=== PATIENT | female | born 1950 | race Caucasian/White ===

== ENCOUNTER 2024-10-23 13:35 | Emergency (ER) | payer OTHER, SELFPAY ==
[2024-10-23] VITALS (9 sets, daily range): BP systolic 94–133; BP diastolic 61–83; PULSE 89–119; RESP 16–20; TEMP 36.4–36.7; O2SAT 94–98; BMI 30.6
--- NOTE | ~2024-10-23 | XR_ITS ---
CLINICAL HISTORY: R Chest pain ribs 1 view chest x-ray Comparison: None Findings: The lungs are clear. Normal size heart. No acute fracture. IMPRESSION: 1. No acute findings. This document has been electronically signed by: Karine Vail MD on 10/23/2024 17:18:59
--- NOTE | 2024-10-23 16:14 | ECG_ITS ---
Test Reason : HYPOTENSIVE Blood Pressure : */* mmHG Vent. Rate : 92 BPM Atrial Rate : 92 BPM P-R Int : 136 ms QRS Dur : 70 ms QT Int : 350 ms P-R-T Axes : 39 -35 115 degrees QTcB Int : 432 ms Normal sinus rhythm Left axis deviation Nonspecific T wave abnormality Abnormal ECG No previous ECGs available Referred By: Yolande Wisdom Electronically Signed By: JASMIN KING
--- NOTE | 2024-10-23 16:17 | ED.GENADULT ---
HPI - General Adult General Chief complaint: General Medical Stated complaint: hypotension 70/46 Time Seen by Provider: 10/23/24 16:05 Source: patient and EMS Mode of arrival: EMS Limitations: no limitations History of Present Illness ED Provider: Dr. Yolande Wisdom HPI narrative: Patient comes to the emergency room from her primary care physician's office. According to the patient, she was there for a routine exam. Patient states that she has not been feeling quite well for a few days, a bit of runny nose. No syncopal episodes, no shortness of breath or chest pain. When they checked her vitals, they noted that her orthostatics were positive, 90/62 supine and then 70/46 sitting. They called an ambulance and brought the patient to emergency room. At this time, patient has no complaints. Patient reports that this morning she took amlodipine and valsartan. Patient states that recently she was asked to increase her dose by taking an additional tablet, patient believes that she might have taking a bit more than instructed because she got confused. Patient denies syncope or near syncopal episodes Related Data Allergies Allergy/AdvReac Type Severity Reaction Status Date / Time No Known Allergies Allergy Verified 10/23/24 13:59 Review of Systems Review of Systems: Constitutional : No Weight loss, No Fever, No Chills, No Night Sweats, No Fatigue, No Malaise ENT/Mouth : No Hearing loss, No Ear Pain, No Nasal Congestion, No Sinus Pain, No Hoarseness, No sore throat, No Rhinorrhea, No Swallowing Difficulty Eyes: No Eye Pain, No Swelling, No Redness, No Foreign Body, No Discharge, No Vision Changes Cardiovascular : No Chest Pain, No SOB, No Dyspnea on Exertion, No Orthopnea, No Edema, No Palpitations, patient reports positive orthostatic hypotension vitals earlier today Respiratory : No Cough, No Sputum, No Wheezing, No Smoke Exposure, No Dyspnea Gastrointestinal : No Nausea, No Vomiting, No Diarrhea, No Constipation, No abdominal Pain, No Hematochezia, No Melena Genitourinary : no irregular bleeding, No Dysuria, No Urinary Frequency, No Hematuria, No Urinary Incontinence, No Urgency, No Flank Pain, No Urinary Flow Changes, No Hesitancy Musculoskeletal : No joint pain, No Myalgias, No Joint Swelling Skin : No Skin Lesions, No rash Neuro : No Weakness, No Numbness, No Paresthesias, No Loss of Consciousness, No Dizziness, No Headache Psych : No Anxiety/Panic, No Depression, No SI/HI/AH/VH, No Social Issues, Heme/Lymph: No Bruising, No Bleeding,No Lymphadenopathy Endocrine : No Polyuria, No Polydipsia, No Temperature Intolerance [facility] Past Medical History Medical History (Updated 10/23/24 @ 19:57 by Yolande Wisdom MD) Diabetes Hypertension Social History Social History Smoked in Last 30 Days: No Use of substances other than those prescribed or required for medical reasons: No Advance Directives: No Advance Directives Information Provided: No Physical Exam ED Vital Signs: Vital Signs - 24 hr 10/23/24 13:52 10/23/24 14:23 10/23/24 15:12 Temperature 97.5 F Pulse Rate 103 H 94 90 Respiratory Rate 18 16 Blood Pressure 94/64 104/61 113/65 Pulse Oximetry 98 95 Oxygen Delivery Method Room Air Room Air 10/23/24 15:14 10/23/24 15:16 10/23/24 16:36 Temperature Pulse Rate 109 H 119 H 90 Respiratory Rate Blood Pressure 116/73 105/66 95/65 Pulse Oximetry Oxygen Delivery Method 10/23/24 16:36 10/23/24 16:37 10/23/24 19:04 Temperature 98.1 F Pulse Rate 103 H 119 H 89 Respiratory Rate 20 Blood Pressure 106/73 103/62 133/83 Pulse Oximetry 94 Oxygen Delivery Method Room Air 10/23/24 22:44 Temperature 97.8 F Pulse Rate 95 Respiratory Rate 18 Blood Pressure 100/65 Pulse Oximetry 94 Oxygen Delivery Method Room Air BMI result Body Mass Index 30.6 Const Other: Appearance: Alert. Oriented X3. No acute distress. Eyes: Pupils equal, round and reactive to light. ENT: Pharynx normal. Neck: Normal inspection. Neck supple. No lymph nodes noted. No crepitus CVS: Normal heart rate and rhythm. Pulses normal. Normal S1 and S2 Respiratory: No respiratory distress. Breath sounds normal. No Wheezing. No rales Abdomen: Soft and nontender. No rigidity. No distention. Skin: Skin warm and dry. Normal skin color. Normal skin turgor. Extremities: No lower extremity edema. No Lacerations. No Rash Neuro: Oriented X 3. No motor deficit. No sensory deficit. Moving all extremities. No slurred speech. CN 2 through 12 grossly intact Psych: calm, cooperative, normal affect Course Course Course Narrative: This time, patient is asymptomatic All of patient's labs pending, orthostatic vitals pending Medications Administered Discontinued Medications Generic Name Dose Route Start Last Admin Trade Name Raymon PRN Reason Stop Dose Admin Sodium Chloride 1,000 mls @ 999 mls/hr 10/23/24 16:14 10/23/24 17:56 Ns IVCONT 10/23/24 17:14 Infused .Q1H1M ONE Infusion Medical Decision Making Medical Decision Making [facility] Narrative: My interpretation of labs: Patient's white blood cell count 12.7, likely reactive leukocytosis. No significant abnormality in patient's chemistry, troponin negative, serology negative for influenza RSV and COVID Chest x-ray does not show any acute abnormality My interpretation of EKG: Normal sinus rhythm, heart rate 92, no ST segment depression or elevation, no T-wave inversion, QTC 432 Orthostatic vitals negative Patient feels well after IV fluids. Patient admits that she may have taken extra doses of her morning blood pressure medications. Patient states that she was able to walk to the bathroom, is asymptomatic, denies chest pain shortness of breath or dizziness. A urinalysis was requested. However, patient forgot and went to the bathroom. Did not provide a urine sample Patient feels well to go home. After the patient was all set to be discharged. I was informed by the patient's nurse that the patient was complaining that nobody was addressing her problems. Patient was feeling dizzy again. Patient was given another L of fluids. Although, a few minutes before, she patient got up to the bathroom and stated that she was feeling completely normal. Throughout the entire time that the patient was here in the emergency room, patient was calm, cooperative, normal mood affect, stating that she was feeling well, asymptomatic and felt ready to go home. However, after she was informed that she was getting discharged, the patient made phone calls to her son asking him to pick her up. Seems that her son refused to pick her up. Patient very upset, no longer wants to go, stating that she does not feel well again. started arguing with her nurse. Patient keeps trying to get in touch with family members to pick her up but so far she has had no luck Differential Diagnosis Differential Diagnoses: The differential diagnosis associated with the presentation includes (Orthostatic hypotension, dehydration, accidental medication overdose) Admission/Observation Consideration of admission/observation: Escalation of care including admission/observation considered (Given patient's symptoms and presentation, observation was considered) Lab Data MDM Lab Attestation statement: I reviewed the patient's lab results. 10/23/24 17:14 10/23/24 17:14 Labs: Lab Results 10/23/24 10/23/24 Range/Units 17:14 20:13 WBC 12.7 H (4.8-10.8) X10*3/uL RBC 4.83 (4.20-5.50) X10*6/uL Hgb 14.5 (12.0-16.0) g/dl Hct 43.9 (37.0-47.0) % MCV 90.9 (80.0-98.0) fL MCH 30.0 (27.0-33.0) pg MCHC 33.0 (31.0-35.0) g/dl RDW 13.9 (11.0-16.0) % Plt Count 427 H (160-400) X10*3/uL MPV 9.0 L (9.4-12.3) fL Immature Gran % (Auto) 0.4 (0.0-0.4) % Neut % (Auto) 65.0 (45-73) % Lymph % (Auto) 26.6 (20-40) % Cameron % (Auto) 6.3 (2-11) % Eos % (Auto) 1.3 (0-4) % Baso % (Auto) 0.4 (0-2) % Lymph # (Auto) 3.4 (1.2-4.9) X10*3/uL Cameron # (Auto) 0.8 (0.1-1.2) X10*3/uL Eos # (Auto) 0.2 (0.0-0.4) X10*3/uL Baso # (Auto) 0.1 (0.0-0.2) X10*3/uL Abs Immat Gran (auto) 0.05 H (0.00-0.03) X10*3/uL Absolute Neuts (auto) 8.2 (2.0-8.3) x10*3/uL Absolute Nucleated RBC 0.000 (0.0-0.012) X10*3/uL Nucleated RBC % (auto) 0.0 (0.0-0.2) /100WBC Sodium 141 (135-145) mmol/L Potassium 4.6 (3.3-5.1) mmol/L Chloride 109 H (96-108) mmol/L Carbon Dioxide 27 (22-29) mmol/L Anion Gap 10 L (12-20) BUN 18 H (9-16) mg/dL Creatinine 1.40 (0.5-1.4) mg/dL Estim Creat Clear Calc 32.7 Estimated GFR 37 Random Glucose 89 (60-115) mg/dL Calcium 8.6 (8.4-10.2) mg/dL Magnesium 1.8 (1.6-2.6) mg/dL Total Bilirubin 0.4 (0.0-1.0) mg/dL Direct Bilirubin 0.1 (0.0-0.5) mg/dL AST 14 (5-31) U/L ALT 8 (0-31) U/L Alkaline Phosphatase 73 (39-117) U/L Troponin I High Sens 7.3 (<3.5-17.0) ng/L Total Protein 6.1 L (6.5-8.0) g/dL Albumin 3.3 L (3.5-5.0) g/dL Urine Color Yellow Urine Appearance Cloudy Urine pH 5.0 (5.0-9.0) Ur Specific Mohler 1.020 (1.005-1.025) Urine Protein Trace (Neg-Trace) mg/dL Urine Glucose (UA) Negative (Negative) mg/dL Urine Ketones Negative (Negative) mg/dL Urine Blood Negative (Negative) Urine Nitrite Negative (Negative) Ur Leukocyte Esterase Trace H (Negative) Urine RBC 0-2 (0-2) /HPF Urine WBC 0-5 (0-5) /HPF Ur Squamous Epith Cells 11-20 (0-2) /HPF Urine Bacteria 1+ (None Seen) Hyaline Casts 3-5 (0-2) /LPF Influenza Type A (PCR) NEGATIVE (Negative) Influenza Type B (PCR) NEGATIVE (Negative) RSV RNA Qual (PCR) NEGATIVE (Negative) SARS-CoV-2 RNA (RT-PCR) NEGATIVE (Negative) Independent Interpretation I performed an independent interpretation of an: EKG and Plain X-Ray Radiology Impression Discussion of test interpretation with radiology: I have reviewed the radiologist's reading. Radiologist Impression: The lungs are clear. Normal size heart. No acute fracture. IMPRESSION: 1. No acute findings. Critical Care Time Critical Care Time Critical Care Time: Yes Total Critical Care Time: 35 Attestation: I have personally provided critical care time. Time includes review of lab data, radiology results, discussion with consultants, and monitoring for potential decompensation. Intervention performed as documented. Discharge Plan Discharge Clinical Impression: Orthostatic hypotension Patient Disposition: Home, Self-Care Instructions: Hypotension (ED) Additional Instructions: Please follow-up with your primary care physician tomorrow. If you have any worsening or new symptoms, please return to the emergency room or call 911 Print Language: Kyrgyz
--- OUTSIDE RECORDS SUMMARY | 2024-10-23 16:29 | XMS_ITS | Clinical Summary ---
Author Organization [facility] Address [address] [facility] [address] [place] [address] Phone Care Team Providers Care Polytechnic Registrar Name Role Phone Edy Gordon MD Primary Care Provider [phone] Allergies Active Allergy Reactions Criticality Noted Date Comments Bupropion 03/19/2024 Other Reaction(s): we are thoughts Citalopram 03/19/2024 Other Reaction(s): sexual dysfunction Niacin 03/19/2024 Other Reaction(s): burning Rosiglitazone 03/19/2024 Other Reaction(s): swelling Medications amLODIPine (NORVASC) 5 MG tablet Take 5 mg by mouth in the morning. 2018 Active aspirin (ST SANAM) 81 MG EC tablet Take 81 mg by mouth 05/24/2017 Active atorvastatin (LIPITOR) 80 MG tablet Take 80 mg by mouth 01/15/2022 Active fenofibrate (TRICOR) 145 MG tablet Take 145 mg by mouth in the morning. Active gemfibrozil (LOPID) 600 MG tablet Take 600 mg by mouth 01/15/2022 Active insulin glargine (LANTUS) 100 UNIT/ML injection Inject 80 Units under the skin in the morning. Active LORazepam (ATIVAN) 1 MG tablet Take 1 mg by mouth Active nortriptyline (PAMELOR) 25 MG capsule Take 25 mg by mouth in the morning and 25 mg in the evening. 01/15/2022 Active valsartan (DIOVAN) 320 MG tablet Take 320 mg by mouth 01/15/2022 Active escitalopram (LEXAPRO) 10 MG tablet Take 10 mg by mouth 1 (one) time each day 02/07/2024 Active Active Problems Problem Noted Date Diagnosed Date Stage 3a chronic kidney disease 03/20/2024 Type 2 diabetes mellitus wit h diabetic chronic kidney disease 03/20/2024 Hypertensive disorder 08/16/2018 Overview (03/19/2024): Last Assessment & Plan: Patient carries a diagnosis of hypertension has been followed by her PCP Alice Pompa and multiple medications have been tried. Patient was found to be responsive to valsartan and was managed on this medication. Given acute kidney injury valsartan was discontinued. Her pressures now slightly increased to 139/81 -We will start on Norvasc 5 mg daily. -Renal consult as above for hypertension management as well as acute kidney injury. Diabetes mellitus 08/15/2018 Overview (03/19/2024): on insulin Last Assessment & Plan: Blood sugars elevated to 343 likely related to acute infectious process. Patient was managed on Lantus 50 units at bedtime at home ; on admission dose was decreased to 20 units nightly due to poor p.o. intake . Blood sugars have been well controlled on this regimen and fasting sugar was 94. -Continue Lantus 20 units subcu nightly -Continue POCT's and QID ssi. Family History Relation Status Comments Father Mother Social History Tobacco Use Types Packs/Day Years Used Date Smoking Tobacco: Never Smokeless Tobacco: Never Tobacco Cessation:Counseling Given: Not Answered Alcohol Use Standard Drinks/Week Comments Yes 0 (1 standard drink = 0.6 oz pur e alcohol) Comments Unknown Sex and Gender Information Value Date Recorded Sex Assigned at Not on file Legal Sex Female 9:46 AM EDT Gender Identity Not on file Sexual Orientation Not on file Last Filed Vital Signs Vital Sign Reading Time Taken Comments Blood Pressure 130/70 03/20/2024 11:32 AM EDT Pulse 77 03/20/2024 11:32 AM EDT Temperature - - Respiratory Rate - - Oxygen Saturation 98% 03/20/2024 11:32 AM EDT Inhaled Oxygen Concentration - - Weight 82.4 kg (181 lb 9.6 oz) 03/20/2024 11:32 AM EDT Height - - Body Mass Index - - Plan of Treatment Health Maintenance Due Date Last Done Comments Breast Cancer Screening 1950 Pneumococcal Vaccine: 65+ Ye ars (1 of 2 - PCV) 1957 Colorectal Cancer Screening: Annual FOBT 2000 Colorectal Cancer Screening: Colonoscopy 2000 Colorectal Cancer Screening: Sigmoidoscopy 2000 Diabetes: Ophthalmology Exam 03/19/2024 Diabetes: Pedal Pulse Checked 03/19/2024 Diabetes: Sensory Foot Exam 03/19/2024 Diabetes: Visual Foot Exam 03/19/2024 Diabetes: Hemoglobin A1C 04/03/2024 01/03/2024 Influenza Vaccine (#1) 2024 Hepatitis B Vaccine Aged Out No longe r eligible based on patient's age to complete this topic Procedures Procedure Name Priority Date/Time Associated Diagnosis Comments EXT RESULT ENTRY Routine 01/03/2024 from Last 3 Months or Most Recently Relevant to Health Maintenance Results * (ABNORMAL) EXT RESULT ENTRY (01/03/2024) WBC 11.0(A) 3.3 - 10.0 10*3/ML Red Blood Cell Count 5.11 Hemoglobin 14.9 12.0 - 16.0 Hematocrit 45.2 36.0 - 46.0 Platelets 401(A) 150 - 399 10*3/UL MCV 88.5 82.0 - 108.0 Sodium 139 137 - 147 Potassium 4.2 3.4 - 5.5 Chloride 102.0 99.0 - 108.0 BUN 101(A) 4 - 21 mg/dL Albumin 4.0 3.5 - 5.0 g/dL Calcium 9.1 8.7 - 10.7 mg/dL eGFR Non-Afr Djib[place]ian 49 Hemoglobin A1C 10.4(A) 4.0 - 6.0 01/03/2024 us Historical Provider LAB BLOOD ORDERABLES Paty l Result from Last 3 Months or Most Recently Relevant to Health Maintenance Insurance [facility] ([id number]) [facility] ([id number]) Care Teams Polytechnic Registrar Relationship Specialty Start Date End Date Edy Gordon MD [address] [place] [address] PCP - General Internal Medicine 03/19/24
--- OUTSIDE RECORDS SUMMARY | 2024-10-23 16:29 | XMS_ITS | Encounter Summary ---
Author Organization [facility] Address [address] [facility] [address] [facility] [address] [place] [address] Phone Care Team Providers Care Tube Bending Machine Operator Name Role Phone Edy Gordon MD Primary Care Provider [phone] Encounter Details Date Type Department Care Team (Latest Contact Info) Description 03/21/2024 Office Communication [facility] [address] [facility] [address] [facility] [address] [place] [address] Jose Foy MD [address] [facility] [address] [address] [place] [address] Stage 3b chronic kidney disease (HCC) (Primary Dx) Social History Tobacco Use Types Packs/Day Years Used Date Smoking Tobacco: Never Smokeless Tobacco: Never Alcohol Use Standard Drinks/Week Comments Yes 0 (1 standard drink = 0.6 oz pur e alcohol) Comments Unknown Sex and Gender Information Value Date Recorded Sex Assigned at Not on file Legal Sex Female 9:46 AM EDT Gender Identity Not on file Sexual Orientation Not on file documented as of this encounter Miscellaneous Notes * Telephone Encounter - Doyle Luciano - 03/26/2024 3:01 PM EDT Pt called to informed that she messed up taking her vit D and took a pill once a day for 3 days ( Fri,sat and sun) in a row what should she do for the next dose please call [phone] * Telephone Encounter - Jose Foy MD - 03/22/2024 8:40 AM EDT Pls call her and let her know I started a vit D pill --I sent Rx to her pharmacy * Telephone Encounter - Jose Foy MD - 03/21/2024 2:49 AM EDT Be sure to fax 03/20/[address] Gordon--THX documented in this encounter Plan of Treatment Scheduled Orders Name Type Priority Associated Diagnoses Orde r Schedule Renal Function Panel Lab Routine Stage 3b chronic kidney disease (HCC) Expected: 04/30/2024, Expires: 04/26/2025 Urinalysis with microscopic Lab Routine Stage 3b chronic kidney disease (HCC) Expected: 04/30/2024, Expires: 04/26/2025 Urine Albumin / Creatinine Ratio Lab Routine Stage 3b chronic kidney disease (HCC) Expected: 04/30/2024, Expires: 04/26/2025 Protein, Total, Random Urine w/Creatinine (Protein/Creat Ratio) Lab Routine Stage 3b chronic kidney disease (HCC) Expected: 04/30/2024, Expires: 04/26/2025 Vitamin D 25 hydroxy Lab Routine Stage 3b chronic kidney disease (HCC) Expected: 04/30/2024, Expires: 04/26/2025 Calcium Lab Routine Stage 3b chronic kidney disease (HCC) Expected: 04/30/2024, Expires: 04/26/2025 documented as of this encounter Visit Diagnoses Diagnosis Stage 3b chronic kidney disease (HCC)- Primary documented in this encounter Care Teams Tube Bending Machine Operator Relationship Specialty Start Date End Date Edy Gordon MD [address] [place] [address] PCP - General Internal Medicine 03/19/24 documented as of this encounter
[2024-10-23] MEDS: 0.9 % Sodium Chloride 1,000 ML 999 ML IVCONT (16:42)
[2024-10-23 17:19] LABS: MANUAL DIFF FLAG NO
[2024-10-23 17:20] LABS: Basophils Absolute Auto 0.1 X10*3/uL (0.0-0.2); Basophils Percent Auto 0.4 % (0-2); Eosinophils Absolute Auto 0.2 X10*3/uL (0.0-0.4); Eosinophils Percent Auto 1.3 % (0-4); Hematocrit 43.9 % (37.0-47.0); Hemoglobin 14.5 g/dl (12.0-16.0); Imm Gran Abs Auto 0.05 X10*3/uL (0.00-0.03); Imm Gran Pct Auto 0.4 % (0.0-0.4); Lymphocytes Absolute Auto 3.4 X10*3/uL (1.2-4.9); Lymphocytes Percent Auto 26.6 % (20-40); Mean Corpuscular Volume 90.9 fL (80.0-98.0); Monocytes Absolute Auto 0.8 X10*3/uL (0.1-1.2); Monocytes Percent Auto 6.3 % (2-11); Neutrophils Absolute Auto 8.2 x10*3/uL (2.0-8.3); Platelet Count 427 X10*3/uL (160-400); Red Blood Count 4.83 X10*6/uL (4.20-5.50); Red Cell Distribution Width 13.9 % (11.0-16.0); White Blood Count 12.7 X10*3/uL (4.8-10.8)
[2024-10-23 17:35] LABS: Alanine Aminotransferase 8 U/L (0-31); Albumin Level 3.3 g/dL (3.5-5.0); Alkaline Phosphatase 73 U/L (39-117); Anion Gap 10 (12-20); Aspartate Amino Transferase 14 U/L (5-31); Bilirubin Direct 0.1 mg/dL (0.0-0.5); Bilirubin Total 0.4 mg/dL (0.0-1.0); Blood Urea Nitrogen 18 mg/dL (9-16); Calcium 8.6 mg/dL (8.4-10.2); Carbon Dioxide 27 mmol/L (22-29); Chloride 109 mmol/L (96-108); Creatinine Clr Calc Pharmacy 32.7; Estimated Glomerular Filt Rate 37; Glucose Random 89 mg/dL (60-115); Magnesium 1.8 mg/dL (1.6-2.6); Potassium 4.6 mmol/L (3.3-5.1); Sodium 141 mmol/L (135-145); Total Protein 6.1 g/dL (6.5-8.0)
[2024-10-23 17:41] LABS: Troponin-I High Sensitivity 7.3 ng/L (<3.5-17.0)
[2024-10-23 18:50] LABS: Influenza A PCR NEGATIVE (Negative); Influenza B PCR NEGATIVE (Negative); Resp Syncy Virus RNA Qual PCR NEGATIVE (Negative); SARS COV2 PCR INHOUSE NEGATIVE (Negative)
[2024-10-23 20:22] LABS: Appearance Urine Cloudy; Color Urine Yellow; Glucose Urine UA Negative (Negative); Leukocyte Esterase Urine Trace (Negative); Nitrite Urine Negative (Negative); UMIC TRIGGER UACC YES; Urine Blood Negative (Negative); Urine Ketones Negative (Negative); Urine Protein Trace mg/dL (Neg-Trace)
[2024-10-23 21:01] LABS: Bacteria Urine 1+ (None Seen); RBC Urine 0-2 /HPF (0-2); WBC Urine 0-5 /HPF (0-5)
--- NOTE | 2024-10-23 22:58 | PC.NURSE ---
During discharge assessment patient got up too fast and stated that she is dizzy and lightheaded. This RN instructed patient to change positions slowly, BP 100/65, P 97. DR. Wisdom notified. Plan to administer 1 L of NS prior to discharge.
[2024-10-24 00:01] VITALS: BP 115/74; PULSE 121; RESP 18; O2SAT 98
--- NOTE | 2024-10-24 00:06 | PC.NURSE ---
Patient removed IV line herself and refused IV fluids.
--- NOTE | 2024-10-24 00:07 | PC.NURSE ---
Patient pacing in her room waiting for her son to arrive, gait is steady. Discharge vitals obtained HR 121, BP 115/74. Patient denies chest pain/heart palpitations/SOB. Dr. Wisdom notified, per OK for patient to be discharged home.
[2024-10-24 00:14] VITALS: BP 115/74; PULSE 121; RESP 18; TEMP 36.6; O2SAT 98
== END 2024-10-24 00:16 | disposition home or self-care (01) ==
PROVIDERS: Emergency Provider Emergency Medicine; PCP Internal Medicine
DX: I95.1 Orthostatic hypotension (principal); E11.9 Type 2 diabetes mellitus without complications; I10 Essential (primary) hypertension; Z03.818 Encounter for observation for suspected exposure to other biological agents ruled out
CPT/HCPCS: 0241U; 36415; 71045; 80048; 80076; 81001; 83735; 84484; 85025; 93005; 96360; 99284; 99285

== ENCOUNTER → 2024-10-23 16:14 | Outpatient (BNV) | payer OTHER, SELFPAY | PROVIDERS: Emergency Provider Emergency Medicine; PCP Internal Medicine; Visit Provider Internal Medicine | DX: I95.9 Hypotension, unspecified (principal); R94.31 Abnormal electrocardiogram [ECG] [EKG] | CPT/HCPCS: 93010 ==

== ENCOUNTER → 2024-10-23 16:15 | Outpatient (BNV) | payer OTHER, SELFPAY | PROVIDERS: Emergency Provider Emergency Medicine; PCP Internal Medicine; Visit Provider Radiology Diagnostic Radiology | DX: R07.9 Chest pain, unspecified (principal); R07.81 Pleurodynia | CPT/HCPCS: 71045 ==

== ENCOUNTER 2025-01-29 15:23 | Outpatient (AMB) | payer MEDICARE, SELFPAY ==
--- NOTE | 2025-01-29 15:24 | MHC.PC.OV ---
Vital Signs 01/29/25 15:40 Height 5 ft 2.2 in Weight 154 lb BMI 28.0 BP 133/78 Respiration 14 Pulse 114 H Pulse Source Pulse Oximeter Temp 97.8 F Temp Source Temporal Artery Scan Pulse Oximetry (%) 98 Oxygen Delivery Method Room Air Intake Visit Reasons: establish care - see comments Insurance Verification Clerk Required: No Accompanied by: Self / Same As Patient Allergies brompheniramine [From Dimetapp (brompheniramine-PPA)] Allergy (Mild, Verified 01/29/25 16:26) rash phenylpropanolamine [From Dimetapp (brompheniramine-PPA)] Allergy (Mild, Verified 01/29/25 16:26) rash Tobacco use date assessed: 01/29/25 Fall risk assessment: No Falls in past year Last assessed Fall Risk: 01/29/25 Dental Screening Dental Screen Date: 01/29/25 Did you have a dental visit in the last 12 months?: Yes Did you have a dental problem in the last 6 months where you did not have access to dental care?: No Was dental information given to patient?: Patient has dentist (patient has dentures) [facility] Medical History (Updated 01/29/25 @ 16:28 by Dean Pierson MD) Diabetes Hypertension Family History (Updated 01/29/25 @ 15:25 by CECY Leigh) Father No problems noted. Mother No problems noted. Social History (Updated 01/29/25 @ 15:50 by CECY Leigh) Housing: House Alcohol intake: current Alcohol intake frequency: holidays/special occasions only Patient Tobacco Use Status: Former Tobacco user Tobacco use type: Cigarette service: No Current occupational status: retired Cognitive needs: No Hearing needs: No Vision needs: Yes (reading glasses) Questionnaire PHQ-9 Over the last 2 weeks, how often have you been bothered by any of the following problems? 1. Little interest or pleasure in doing things: not at all 2. Feeling down, depressed, or hopeless: not at all 3. Trouble falling or staying asleep, or sleeping too much: not at all 4. Feeling tired or having little energy: not at all 5. Poor appetite or overeating: not at all 6. Feeling bad about yourself - or that you are a failure or have let yourself or your family down: not at all 7. Trouble concentrating on things, such as reading the newspaper or watching television: not at all 8. Moving or speaking so slowly that other people could have noticed. Or the opposite - being so fidgety or restless that you have been moving around a lot more than usual: not at all 9. Thoughts that you would be better off or of hurting yourself in some way: not at all Total score: 0 Source: Developed by Drs. Alvarado Canales, Chante Sanz, Hiren Paul and colleagues, with an educational kathie from [employer]. Thrive Questionnaire Date Thrive assessed: 01/29/25 I am a: Patient What is your living situation today?: I have a steady place to live Within the past 12 months, did the food you bought not last and you didn't have the money to get more?: Never true Within the past 12 months, did you worry whether your food would run out before you got money to buy more?: Never true Do you have trouble paying for medicines?: No Do you have trouble getting transportation to medical appointments?: No Do you have trouble paying your heating and electricity bill?: No Do you have trouble taking care of your child, family member or friend?: No Do you have trouble with day-to-day activities such as bathing, preparing meals, shopping, managing finances, etc.?: No Are you currently unemployed and looking for a job?: No Are you interested in more education?: No Please select the resources that you would like help with: None Currently or been in a relationship where the following occur: No concerns reported THRIVE Score: 0 AUDIT C Alcohol Use Questionnaire (AUDIT-C) 1. How often do you have a drink containing alcohol?: Monthly or less 2. How many drinks containing alcohol do you have on a typical day when you are drinking?: 1 or 2 3. How often do you have six or more drinks on one occasion?: Never Total Score: 1 CHAU-7 AMB Questionnaire CHAU-7 Date CHAU - 7 assessed: 01/29/25 Feeling nervous, anxious, or on edge: 0 = Not at all Not being able to stop or control worryin = Not at all Worrying too much about different things: 0 = Not at all Trouble relaxin = Not at all Being so restless that it is hard to sit still: 0 = Not at all Becoming easily annoyed or irritable: 0 = Not at all Feeling afraid as if something awful might happen: 0 = Not at all Total CHAU-7 score (0-4 normal; 5-9 mild; 10-14 moderate; 15-21 severe): 0 Source: Developed by Drs. Alvarado Canales, Chante Sanz, Hiren Paul and colleagues, with an educational kathie from [employer]. Physical exam (Primary Care) Vital Signs: Last Vital Signs Temp 97.8 F 01/29/25 15:40 Pulse 114 H 01/29/25 15:40 Resp 14 01/29/25 15:40 BP 133/78 01/29/25 15:40 Pulse Ox 98 01/29/25 15:40 Oxygen Delivery Method Room Air 01/29/25 15:40 BMI result Body Mass Index 28.0 Tobacco/Smoking Status: Tobacco use Status Tobacco use date assessed 01/29/25 01/29/25 15:26 Patient Tobacco Use Status Former Tobacco user 01/29/25 15:50 Tobacco use type Cigarette 01/29/25 15:50 PHQ-9: PHQ-9 Score PHQ-9: Total score 0 01/29/25 15:50 Thrive Assessment: Date of Thrive Assessment Date Thrive assessed 01/29/25 01/29/25 15:26 Currently or been in a relationship where the following occur: No concerns reported Advance Care Planning discussion: Exists, not on file Date of discussion: 01/29/25 Forms completed: Health Care Proxy and MOLST Time spent: 1-15 minutes, not on file Coding Level of Care Code New Pt Level 4 (63974) Complex EM visit Add On G2211 Diagnoses Diabetes E11.9 Additional Codes Vital Signs *Quality* - Advance Care Planning discussion: Exists, not on file ([id number]) Vital Signs *Quality* - Time spent: 1-15 minutes, not on file ([id number]) Assessment & Plan Assessment & Plan (1) Diabetes: Code(s): E11.9 - Type 2 diabetes mellitus without complications Category: Medical Plan: Blood work ordered. Will call with results Plan History of Present Illness The patient is a 74-year-old female presenting with concerns regarding her Type 2 Diabetes Mellitus management involving Ozempic. She began therapy at 0.5 mg in May and transitioned to 1 mg in September. This change resulted in notable weight loss of 30 pounds and improved glycemic control with an A1c of 7. Despite experiencing initial right-sided abdominal pain linked to sugar intake, these symptoms decreased over time. She expressed concerns about possible interactions between Ozempic and Lantus. Concurrently managed, her history of hypertension and hyperlipidemia involves amlodipine and statin therapy; however, gemfibrozil was discontinued due to the tablet size. Her GERD symptoms are well-controlled on omeprazole, which mitigated throat closure occurrences exacerbated by specific foods. She has successfully navigated challenges related to anxiety and depression with her psychiatric medications, although historical familial and bereavement issues have been a contributing psychosocial factor. 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 living alone - Engages primarily in watching TV for leisure - Past engagement in [email or web address], ceased two years ago - Rare alcohol consumption; one bottle of wine in the past year - Does not smoke - Does not drive at night Review of Systems - Constitutional: Reports dizziness at times - Endocrine: Denies other diabetic symptoms worsening - Gastrointestinal: Reports past GERD symptoms, no current issues with medications - Musculoskeletal: Denies generalized pain - Neurological: Reports dizziness - Psychiatric: Reports anxiety and mood-related issues; medication management in place Physical Exam General: Cooperative and healthy appearing Nutritional Appearance: Well nourished Orientation/consciousness: Patient oriented x3 Limitations: No limitations Head: Normal to inspection General: Appearance normal, both eyes and all related structures Neck: Normal visual inspection Chest: Normal palpation of entire chest wall Respiratory: Clinically fine, no pains noted, deep breaths taken without issue. ormal respiratory effort Neurology: Patient oriented x3, reports occasional dizziness. Results Plan 1. Type 2 Diabetes Mellitus - Maintain Ozempic and Lantus dosages. - Monitor A1c levels. - Advise dietary modifications to reduce sugar intake and symptoms. 2. Obesity - Encourage continuation of current weight loss regimen. 3. Hypertension - Continue management with amlodipine. - Re-assess symptomatic dizziness. 4. Hyperlipidemia - Cease gemfibrozil, continue a statin. - Plan for lipid panel evaluation. 5. Generalized Anxiety Disorder - Continue psychiatric medications as prescribed. 6. Depression - Maintain current psychiatric regimen. 7. Gastroesophageal Reflux Disease Gerd - Continue omeprazole. - Monitor dietary triggers. Discussion Notes I discussed with the patient the maintenance of her current medication regimen for diabetes and hypertension, emphasizing the importance of Ozempic given her impressive weight loss and glycemic control. We concluded to stop gemfibrozil due to pill size issues but to maintain statins pending lipid results. Gastroesophageal reflux disease management remains effective with omeprazole, which the patient should continue due to previous throat closing episodes. I encouraged dietary changes to mitigate any gastrointestinal discomfort associated with the Ozempic regimen, particularly when consuming carbohydrates. The patient voiced her understanding of the need for blood work to ensure ongoing management of her conditions, and we will review these results at the next scheduled visit. Patient Instructions - Continue all current medications as directed. - Monitor blood glucose levels regularly. - Avoid sugar-heavy diets to prevent abdominal pain. - Schedule a lipid panel and A1c evaluation. - Contact the office if experiencing significant dizziness. - Continue omeprazole for GERD and watch for any reoccurring symptoms. - Return for follow-up as needed to reassess current medication regimen and symptom management.
--- OUTSIDE RECORDS SUMMARY | 2025-01-29 15:27 | XMS_ITS | Encounter Summary ---
Author Organization [facility] Address [address] [facility] [address] [place] [address] Phone Care Team Providers Care Home Health Care Coordinator Name Role Phone Edy Gordon MD Primary Care Provider [phone] Encounter Details Date Type Department Care Team (Latest Contact Info) Description 03/21/2024 Office Communication [facility] [address] [facility] [address] [place] [address] Jose Foy MD [address] [facility] [address] [place] [address] Stage 3b chronic kidney disease [...] do for the next dose please call [phone] * Telephone Encounter - Jose Foy MD [...] Primary documented in this encounter Care Teams Home Health Care Coordinator Relationship Specialty Start Date End Date Edy Gordon MD [address] [place] [address] PCP - General Internal Medicine 03/19/24 documented as of this encounter
[2025-01-29 15:40] VITALS: BP 133/78; PULSE 114; RESP 14; TEMP 36.6; O2SAT 98; BMI 28.0
== END 2025-01-29 16:32 | disposition home or self-care (01) ==
LOC: HO.HMCSH 15:23
PROVIDERS: PCP Internal Medicine; Visit Provider Internal Medicine
DX: E11.9 Type 2 diabetes mellitus without complications (principal); Z00.00 Encounter for general adult medical examination without abnormal findings

== ENCOUNTER → 2025-01-29 15:23 | Outpatient (BNVA) | payer MEDICARE, SELFPAY | PROVIDERS: PCP Internal Medicine; Visit Provider Internal Medicine | DX: E11.9 Type 2 diabetes mellitus without complications (principal); Z79.899 Other long term (current) drug therapy; K21.9 Gastro-esophageal reflux disease without esophagitis | CPT/HCPCS: 96127; 99202 ==

== ENCOUNTER 2025-06-19 10:28 | Outpatient (REF) | payer MEDICARE, SELFPAY ==
--- OUTSIDE RECORDS SUMMARY | 2025-06-19 12:26 | XMS_ITS | Clinical Summary ---
Author Organization [facility] Address [address] [place] [address] [place] [id number] Phone Care Team Providers Care Underwriting Sales Representative Name Role Phone Unknown, Unknown Primary Care Provider Nadiavajonny lable Allergies No known active allergies Medications insulin glargine (LANTUS, BASAGLAR) 100 unit/mL (3 mL) InPn injection penIndications: type 2 diabetes mellitus Inject 58 Units under the skin daily. Active atorvastatin (LIPITOR) 80 MG tablet Take 80 mg by mouth daily. Active fenofibrate (TRICOR) 145 MG tablet Take 145 mg by mouth daily. Active omeprazole (PRILOSEC) 20 mg TbEC Take 20 mg by mouth daily before breakfast. Active nortriptyline (PAMELOR) 25 MG capsule Take 25 mg by mouth nightly. Active FLUoxetine (PROZAC) 20 MG capsule Take 20 mg by mouth daily. Active LORazepam (ATIVAN) 1 MG tablet Take 1 mg by mouth every 8 (eight) hours as needed for anxiety. Active acetaminophen (TYLENOL) 325 mg tablet Take 2 tablets (650 mg total) by mouth every 6 (six) hours as needed for mild pain or fever. 0 2018 Active amLODIPine (NORVASC) 5 MG tablet Take 1 tablet (5 mg total) by mouth daily. 30 tablet 2018 Active Active Problems Problem Noted Date Diagnosed Date HTN (hypertension) 08/16/2018 Assessment & Plan (08/16/2018 3:25 PM EST): Patient carries a diagnosis of hypertension has [...] management as well as acute kidney injury. ROXANNE (acute kidney injury) 08/15/2018 Assessment & Plan (08/16/2018 3:16 PM EST): Patient admitted with second episode acute kidney injury associated with shortness of breath. Patient receive IV fluid hydration since admission and creatinine has decreased from 2.4-1.50. GFR remains below normal at 36. Patient's baseline renal function is unknown as there are no previous labs to compare. -Continue IV fluid hydration -DC ARB -Renal consult if no further improvement in renal function. -Encourage oral fluids. Dental abscess 08/15/2018 Assessment & Plan (08/16/2018 3:20 PM EST): On admission patient's white count was elevated to 17.97. Patient was tachycardic labs revealed increased ESR and CRP consistent with early sepsis. She was started on IV Unasyn 3g Q12h. Leukocytosis has now resolved and patient is afebrile with stable hemodynamics. Blood cultures were not obtained on admission and given that patient is 24 hours into IV antibiotics would not be useful at this time. Given presentation and failure of outpatient oral amoxicillin will continue on IV antibiotics for now. Has outpt dental fu on Tuesday with Dr. Roberts at [facility]. Diabetes mellitus 08/15/2018 Overview (08/15/2018): on insulin Assessment & Plan (08/16/2018 3:22 PM EST): Blood sugars elevated to 343 likely related to acute infectious process. Patient was managed on Lantus 50 units at bedtime at home ; on admission dose was decreased to 20 units nightly due to poor p.o. intake . Blood sugars have been well controlled on this regimen and fasting sugar was 94. -Continue Lantus 20 units subcu nightly -Continue POCT's and QID ssi. Immunizations Immunization Administration Dates Next Due Pneumococcal polysaccharide PPSV23 08/16/2018(De ferred: Patient Refused) Family History Medical History Relation Comments No Known Problems Brother Leukemia Mother Relation Status Comments Brother Alive Father Mother Son Alive Social History Tobacco Use Types Packs/Day Years Used Date Smoking Tobacco: Former Smokeless Tobacco: Never Alcohol Use Standard Drinks/Week Comments Yes 0 (1 standard drink = 0.6 oz pur e alcohol) rare Education Answer Date Recorded Are you interested in more education? Not on trent e 12/31/2022 Are you concerned about learning? Not on file 12/31/2022 No 12/31/2022 No 12/31/2022 Digital Access Answer Date Recorded No 01/29/2023 No 01/29/2023 Reliable internet access at home? Not on file 01/29/2023 Device with a working camera? Not on file Comments Unknown Sex and Gender Information Value Date Recorded Sex Assigned at Female 08/15/2018 2:01 PM EST Legal Sex Female 10:00 PM EDT Gender Identity Female 08/15/2018 2:01 PM EST Sexual Orientation Not on file Last Filed Vital Signs Vital Sign Reading Time Taken Comments Blood Pressure 176/94 2018 12:34 PM EST Pulse 102 2018 12:34 PM EST Temperature 36.6 C (97.9 F) 2018 12:34 PM EST Respiratory Rate 16 2018 12:34 PM EST Oxygen Saturation 97% 2018 12:34 PM EST Inhaled Oxygen Concentration - - Weight 84.1 kg (185 lb 6.4 oz) 2018 6:34 A M EST Height 160 cm (5' 3 ) 08/15/2018 9:24 PM EST Body Mass Index 32.84 08/15/2018 9:24 PM EST Plan of Treatment Health Maintenance Due Date Last Done Comments Adult Td,Tdap Booster 1950 BLOOD PRESSURE 1950 HEMOGLOBIN A1C 1951 DEPRESSION SCREENING 1963 SMOKING Hx and SMOKELESS TOB ACCO SCREENING 1964 HEPATITIS C SCREENING 1969 PNEUMOCOCCAL VACCINES (50+ y ears) (1 of 2 - PCV) 1970 MAMMOGRAM 1991 COLOGUARD 1996 COLONOSCOPY 1996 COLORECTAL CANCER SCREENING 1996 FIT TEST 1996 FOBT 1996 SIGMOIDOSCOPY 1996 VIRTUAL COLONOSCOPY 1996 RSV VACCINE (1 - Risk 50-74 years 1-dose series) 2001 ZOSTER VACCINES (1 of 2) 2001 OSTEOPOROSIS SCREENING INITI AL (ONE-TIME) 2016 DIABETIC EYE EXAM 08/15/2018 URINE MICROALBUMIN/CREATININ E RATIO 08/15/2018 INFLUENZA VACCINE (#1) 2025 COVID-19 VACCINE (2 - 2024-2 6 season) 2025 12/23/2020 HEPATITIS A VACCINES Aged Out No long er eligible based on patient's age to complete this topic HIB VACCINES Aged Out No longer eligi ble based on patient's age to complete this topic MENINGOCOCCAL VACCINES (ACWY) Aged Out No longer eligible based on patient's age to complete this topic MENINGOCOCCAL VACCINES (B) Aged Out N o longer eligible based on patient's age to complete this topic Medical Devices Not on file Insurance MEDICARE PART A & B [employer]EX SUPPLEMENT MEDICARE PART A & B [employer] MEDEX SUPPLEMENT MEDICARE PART A & B [employer] SUPPLEMENT MEDICARE PART A & B [employer] MEDEX SUPPLEMENT MEDICARE PART A & B [employer] MEDEX SUPPLEMENT MEDICARE PART A & B [employer] MEDEX SUPPLEMENT MEDICARE PART A & B [employer] MEDEX SUPPLEMENT MEDICARE PART A & B [employer] MEDEX SUPPLEMENT MEDICARE PART A & B [employer] MEDEX SUPPLEMENT Advance Directives For more information, please contact: [phone] (9AM - 5PM [facility], Tuesday-Tuesday) * Full Code (Presumed) (Latest Code Status on File) Date Activated Date Inactivated Comments 08/15/2018 8:59 PM 2018 2:46 PM Care Teams Underwriting Sales Representative Relationship Specialty Start Date End Date Unknown, Unknown, PCP - General 08/15/18 Additional Source Comments The information contained in this document represents components of the legal health record. It is not the complete legal health record.[facility]
--- OUTSIDE RECORDS SUMMARY | 2025-06-19 12:26 | XMS_ITS | Encounter Summary ---
Author Organization [facility] Address [address] [facility] [address] [place] [address] Phone Care Team Providers Care Retail Greeter Name Role Phone Edy Gordon MD Primary Care Provider [phone] Encounter Details Date Type Department Care Team (Latest Contact Info) Description 03/21/2024 Office Communication [facility] [address] [facility] [address] [place] [address] Jose Foy MD [address] [facility] [address] [place] [address] Stage 3b chronic kidney disease [...] do for the next dose please call [phone] * Telephone Encounter - Jose Foy MD [...] Primary documented in this encounter Care Teams Retail Greeter Relationship Specialty Start Date End Date Edy Gordon MD [address] [place] [address] PCP - General Internal Medicine 03/19/24 documented as of this encounter
--- OUTSIDE RECORDS SUMMARY | 2025-06-19 12:26 | XMS_ITS | Clinical Summary ---
Author Organization [facility] Address [address] [facility] [address] [place] [address] Phone Care Team Providers Care Brush Trimming Machine Setter Name Role Phone Edy Gordon MD Primary Care Provider [phone] Allergies Active Allergy Reactions Criticality Noted Date [...] Comments Breast Cancer Screening 1950 Pneumococcal Vaccine: 50+ Ye ars (1 of 2 - PCV) 1970 Colorectal Cancer Screening: Annual FOBT 2000 Colorectal Cancer Screening: Colonoscopy 2000 Colorectal Cancer Screening: Sigmoidoscopy 2000 Diabetes: Ophthalmology Exam 03/19/2024 Diabetes: Pedal Pulse Checked 03/19/2024 Diabetes: Sensory Foot Exam 03/19/2024 Diabetes: Visual Foot Exam 03/19/2024 Diabetes: Hemoglobin A1C 04/03/2024 01/03/2024 Influenza Vaccine (#1) 2025 Hepatitis B Vaccine Aged Out No longe [...] 9.1 8.7 - 10.7 mg/dL eGFR Non-Afr Belgian 49 Hemoglobin A1C 10.4(A) 4.0 - 6.0 01/03/2024 us Historical Provider LAB BLOOD ORDERABLES Paty l Result from Last 3 Months or Most Recently [place] [address] [facility] ([id number]) [facility] ([id number]) Care Teams Brush Trimming Machine Setter Relationship Specialty Start Date End Date Edy Gordon MD [address] [place] [address] PCP - General Internal Medicine 03/19/24
[2025-06-19 13:12] LABS: Hematocrit 48.1 % (37.0-47.0); Hemoglobin 14.8 g/dl (12.0-16.0); Mean Corpuscular HGB Conc 30.8 g/dl (31.0-35.0); Mean Corpuscular Hemoglobin 28.8 pg (27.0-33.0); Mean Corpuscular Volume 93.6 fL (80.0-98.0); NRBC Abs Auto 0.000 X10*3/uL (0.0-0.012); NRBC Pct Auto 0.0 /100WBC (0.0-0.2); Platelet Count 510 X10*3/uL (160-400); Red Blood Count 5.14 X10*6/uL (4.20-5.50); White Blood Count 10.5 X10*3/uL (4.8-10.8)
[2025-06-19 13:22] LABS: Appearance Urine Cloudy; Glucose Urine UA Negative (Negative); PH 6.0 (5.0-9.0); Specific Gravity - Urine >= 1.030 (1.005-1.025); UMIC TRIGGER UA YES
[2025-06-19 13:31] LABS: Total Hemoglobin (HGBA1C) 3772.4103 umol/L
[2025-06-19 13:58] LABS: Alanine Aminotransferase 15 U/L (0-31); Albumin Level 4.0 g/dL (3.5-5.0); Alkaline Phosphatase 80 U/L (39-117); Anion Gap 13 (12-20); Aspartate Amino Transferase 23 U/L (5-31); Blood Urea Nitrogen 16 mg/dL (9-16); Calcium 9.7 mg/dL (8.4-10.2); Carbon Dioxide 25 mmol/L (22-29); Chloride 107 mmol/L (96-108); Cholesterol 178 mg/dL (<200); Estimated Glomerular Filt Rate 44; HDL Cholesterol 38 mg/dL (>40); Potassium 4.1 mmol/L (3.3-5.1); Sodium 141 mmol/L (135-145); Total Protein 6.6 g/dL (6.5-8.0); Triglycerides 131 mg/dL (<150)
[2025-06-19 14:17] LABS: Thyroid Stimulating Hormone 1.41 uIU/mL (0.32-4.0)
== END 2025-06-19 10:29 | disposition home or self-care (01) ==
LOC: HO.HMGCLDS 10:28
PROVIDERS: PCP Internal Medicine; Visit Provider Internal Medicine
DX: E11.9 Type 2 diabetes mellitus without complications (principal)
CPT/HCPCS: 36415; 80048; 80061; 80076; 81001; 83036; 84443; 85027

== ENCOUNTER 2025-07-23 13:37 | Outpatient (AMB) | payer MEDICARE, SELFPAY ==
--- NOTE | 2025-07-23 13:40 | MHC.PC.OV ---
Vital Signs 07/23/25 13:42 Height 5 ft 2.2 in Weight 139 lb BMI 25.3 BP 136/94 H Blood Pressure Location Rt brachial Position Sitting Respiration 16 Pulse 78 Pulse Source Pulse Oximeter Temp 97.4 F Temp Source Temporal Artery Scan Pulse Oximetry (%) 97 Oxygen Delivery Method Room Air Intake Visit Reasons: 6 month f/u Land Developer Required: No Accompanied by: Self / Same As Patient Allergies brompheniramine (From Dimetapp (brompheniramine-PPA)) Allergy (Mild, Verified 07/23/25 13:43) rash phenylpropanolamine (From Dimetapp (brompheniramine-PPA)) Allergy (Mild, Verified 07/23/25 13:43) rash Tobacco use date assessed: 01/29/25 Fall risk assessment: No Falls in past year Last assessed Fall Risk: 07/23/25 Dental Screening Dental Screen Date: 07/23/25 Did you have a dental visit in the last 12 months?: Yes Did you have a dental problem in the last 6 months where you did not have access to dental care?: No Was dental information given to patient?: Patient has dentist HPI HPI Comments History of Present Illness Details History of Present Illness - The patient is a 74-year-old female presenting for management of type 2 diabetes. - She reports an episode of dyspnea that lasted for two weeks, during which she was unable to walk around, but this has since resolved and she is back to her baseline. - Regarding her diabetes, the patient currently takes Lantus and Ozempic. - She has been taking 65 units of Lantus daily, down from a previous dose of 80, but feels this is still too much. - She has not been testing her blood glucose for the past year due to not having supplies, but previously tested twice daily before running out. - Her last A1c on June 19 was 6.5, and her kidney function was normal with a GFR of 144. - The patient reports having stopped all her mental health medications on her own after a previous discussion at this clinic. - She is not up to date on her mammogram, reporting that her breasts have been painful since she lost weight. - Her last colonoscopy was approximately three years ago at [facility] in [place], and she was told she needs one every 10 years. - She has received her flu and COVID-19 vaccinations. - The patient sees an cemetery laborer annually and reports doing fine, though she avoids driving at night due to poor night vision. - She reports her hearing is okay. Social History - Functional Status: The patient does not drive at night due to poor night vision. Results - Labs from 06/19: A1c was 6.5, GFR was 144, and thyroid function was normal. [facility] Medical History Diabetes Hypertension Family History Father No problems noted. Mother No problems noted. Social History Housing: House Alcohol intake: current Alcohol intake frequency: holidays/special occasions only Patient Tobacco Use Status: Former Tobacco user Tobacco use type: Cigarette service: No Current occupational status: retired Cognitive needs: No Hearing needs: No Vision needs: Yes (reading glasses) Questionnaire PHQ-9 Over the last 2 weeks, how often have you been bothered by any of the following problems? 1. Little interest or pleasure in doing things: not at all 2. Feeling down, depressed, or hopeless: not at all 3. Trouble falling or staying asleep, or sleeping too much: not at all 4. Feeling tired or having little energy: not at all 5. Poor appetite or overeating: not at all 6. Feeling bad about yourself - or that you are a failure or have let yourself or your family down: not at all 7. Trouble concentrating on things, such as reading the newspaper or watching television: not at all 8. Moving or speaking so slowly that other people could have noticed. Or the opposite - being so fidgety or restless that you have been moving around a lot more than usual: not at all 9. Thoughts that you would be better off or of hurting yourself in some way: not at all Total score: 0 Source: Developed by Drs. Alvarado Canales, Chante Sanz, Hiren Paul and colleagues, with an educational kathie from [employer] Thrive Questionnaire Date Thrive assessed: 01/29/25 CHAU-7 AMB Questionnaire CHAU-7 Date CHAU - 7 assessed: 01/29/25 Source: Developed by Drs. Alvarado Canales, Chante Sanz, Hiren Paul and colleagues, with an educational kathie from [employer] Review of Systems Narrative Review of Systems - Respiratory: Reports a resolved two-week episode of dyspnea. Denies current breathing issues. - Eyes: Reports poor night vision. Denies other vision problems. - Ears: Denies hearing problems. - Breast: Reports breasts have not been doing well and have been painful since her weight loss. - Psychiatric: The patient reports she stopped taking her mental health medications. Physical exam (Primary Care) Vital Signs: Last Vital Signs Temp 97.4 F 07/23/25 13:42 Pulse 78 07/23/25 13:42 Resp 16 07/23/25 13:42 BP 136/94 H 07/23/25 13:42 Pulse Ox 97 07/23/25 13:42 Oxygen Delivery Method Room Air 07/23/25 13:42 BMI result Body Mass Index 25.3 Tobacco/Smoking Status: Tobacco use Status Tobacco use date assessed 01/29/25 07/23/25 13:44 Patient Tobacco Use Status Former Tobacco user 07/23/25 13:44 Tobacco use type Cigarette 07/23/25 13:44 PHQ-9: PHQ-9 Score PHQ-9: Total score 0 07/23/25 14:08 Thrive Assessment: Date of Thrive Assessment Date Thrive assessed 01/29/25 07/23/25 13:44 Narrative Physical Exam General: Appearance normal, both eyes and all related structures Nutritional Appearance: Well nourished Orientation/consciousness: Patient oriented x3 Limitations: No limitations Head: Normal to inspection Neck: Normal visual inspection Chest: Normal palpation of entire chest wall Respiratory: Normal respiratory effort, but patient reported difficulty breathing for two weeks, now resolved Neurology: Patient oriented x3 Office Procedures Flu Questionnaire Does the patient have a severe egg allergy?: No Does the patient have severe life threatening allergies?: No Does the patient have a fever or illness today?: No Has the patient ever had Guillain-Albemarle Syndrome?: No Has the patient ever had any past reaction to a flu shot?: No Immunizations Fluarix [id number] (PF) 45 mcg (15 mcg x 3)/0.5 mL IM syringe Performing Provider: Dean Pierson MD [place] [facility] [place] [facility] Documented (not given) by: CECY Leigh on 07/23/25 14:09 Reason Not Given: Received Previously Coding Level of Care Code Est Pt Level 4 (84321) Complex EM visit Add On G2211 Diagnoses Diabetes E11.9 Assessment & Plan Assessment & Plan (1) Diabetes: Code(s): E11.9 - Type 2 diabetes mellitus without complications Category: Medical Plan Plan - The patient was advised to reduce her Lantus dosage to 60 units daily. - She will continue taking Ozempic 0.5 mg once a week. - A prescription for Freestyle lancets and test strips will be sent to [facility]. - Blood glucose monitoring once a day is recommended. - Will investigate insurance coverage for a continuous glucose monitor (CGM), such as the Freestyle Rosy 3. - An order for a mammogram will be placed. - An attempt will be made to obtain records for her prior colonoscopy. - Schedule a follow-up visit in six months. Discussion Notes I summarized the visit with the patient, noting she is in good health. I advised her to continue her current medications but to reduce the Lantus dose to 60 units. I confirmed that prescriptions for test strips and lancets have been sent. We discussed her interest in a continuous glucose monitor (CGM), and I explained that we will order one that is covered by her insurance, as they can be very expensive otherwise. I placed an order for a mammogram and stressed the importance of completing this screening. I recommended she follow up in six months. Patient Instructions - Reduce your Lantus insulin dose to 60 units each day. - Keep taking your Ozempic (semaglutide) 0.5 mg once a week. - A prescription for testing strips and lancets has been sent to [facility]. - Check your blood sugar once a day. - Please get your mammogram done as ordered. - Do not drive at night since you have trouble seeing. - We will look into getting you a continuous glucose monitor (CGM) that your insurance covers. - Please schedule a follow-up appointment in six months. Orders: Orders Influenza [id number] Immunization Today Z23 - Encounter for immunization MM screening mammo BI Today Z12.31 - Encounter for screening mammogram for malignant neoplasm of breast Medications: New lancets (FreeStyle Lancets) As directed 100 ea 0RF blood sugar diagnostic (FreeStyle Lite Strips) Once a day 100 ea 1RF
[2025-07-23 13:42] VITALS: BP 136/94; PULSE 78; RESP 16; TEMP 36.3; O2SAT 97; BMI 25.3
--- OUTSIDE RECORDS SUMMARY | 2025-07-24 07:08 | XMS_ITS | Clinical Summary ---
Author Organization [facility] Address [address] [place] [address] [place] [id number] Phone Care Team Providers Care Marzipan Molder Name Role Phone Unknown, Unknown Primary Care [...] fu on Tuesday with Dr. Roberts at [facility]. Diabetes mellitus 08/15/2018 Overview (08/15/2018): on [...] file Insurance MEDICARE PART A & B [place] MEDEX SUPPLEMENT MEDICARE PART A & B [place] MEDEX SUPPLEMENT MEDICARE PART A & B [place] CROSS MEDEX SUPPLEMENT MEDICARE PART A & B [place] MEDEX SUPPLEMENT MEDICARE PART A & B [place] MEDEX SUPPLEMENT MEDICARE PART A & B [place] MEDEX SUPPLEMENT MEDICARE PART A & B [place] MEDEX SUPPLEMENT MEDICARE PART A & B [place] CROSS MEDEX SUPPLEMENT MEDICARE PART A & B [place] MEDEX SUPPLEMENT Advance Directives For more information, please contact: [phone] (9AM - 5PM [facility], Tuesday-Tuesday) * Full Code (Presumed) (Latest Code Status on File) Date Activated Date Inactivated Comments 08/15/2018 8:59 PM 2018 2:46 PM Care Teams Marzipan Molder Relationship Specialty Start Date End Date Unknown, Unknown, PCP - General 08/15/18 Additional Source Comments The information contained in this document represents components of the legal health record. It is not the complete legal health record.[facility]
--- OUTSIDE RECORDS SUMMARY | 2025-07-24 07:08 | XMS_ITS | Clinical Summary ---
Author Organization [facility] Address [address] [facility] [address] [place] [address] Phone Care Team Providers Care Hand Woodworking Sander Name Role Phone Edy Gordon MD Primary Care Provider [phone] Allergies Active Allergy Reactions Criticality Noted Date [...] 9.1 8.7 - 10.7 mg/dL eGFR Non-Afr [place] 49 Hemoglobin A1C 10.4(A) 4.0 - 6.0 01/03/2024 us Historical Provider LAB BLOOD ORDERABLES Paty l Result from Last 3 Months or Most Recently [place]vant [place] [address] [facility] ([id number]) [facility] ([id number]) Care Teams Hand Woodworking Sander Relationship Specialty Start Date End Date Edy Gordon MD [address] [place] [address] PCP - General Internal Medicine 03/19/24
== END 2025-07-23 14:28 | disposition home or self-care (01) ==
LOC: HO.HMCSH 13:37
PROVIDERS: PCP Internal Medicine; Visit Provider Internal Medicine
DX: E11.9 Type 2 diabetes mellitus without complications (principal); Z23 Encounter for immunization

== ENCOUNTER → 2025-07-23 13:37 | Outpatient (BNVA) | payer MEDICARE, SELFPAY | PROVIDERS: PCP Internal Medicine; Visit Provider Internal Medicine | DX: E11.9 Type 2 diabetes mellitus without complications (principal); R06.00 Dyspnea, unspecified; Z79.4 Long term (current) use of insulin; Z28.21 Immunization not carried out because of patient refusal; Z79.899 Other long term (current) drug therapy | CPT/HCPCS: 90471; 96127; 99212 ==